=== PATIENT | male | born 1950 | race Caucasian/White ===

== ENCOUNTER 2017-01-01 10:18 | Day surgery (SDC) | payer OTHER ==
[~2017-01-01 10:18] MED LIST: OXYCODONE/APAP 5/325 TAB PO PRN
[2017-01-01] MEDS ORDERED: BUPIVACAINE 0.5% 30 ML SDV ONE (10:59)
[2017-01-01] MEDS ORDERED: ceFAZolin 1 GM/5 ML SYR ONE (11:00)
[2017-01-01] MEDS ORDERED: LIDOCAINE 2% 5 ML SDV ONE (11:01)
[2017-01-01] MEDS ORDERED: LIDOCAINE 1% 5 ML SDV ONE (11:18)
[2017-01-01] MEDS ORDERED: LIDOCAINE 1% 5 ML SDV ID PRN (11:21)
[2017-01-01] MEDS ORDERED: LR 1,000 ML IV ONE (11:21)
[2017-01-01] MEDS ORDERED: CEFAZOLIN 1 GM/DEXTROSE/50 ML BAG IV ONE ×2 (11:24→11:33)
[2017-01-01] MEDS ORDERED: ceFAZolin 2 GM/DEXTROSE 100 ML IV ONE (12:00)
[2017-01-01] MEDS ORDERED: MIDAZOLAM 2 MG/2 ML VIAL ONE (13:16)
[2017-01-01] MEDS ORDERED: LIDOCAINE 2% 100 MG/5 ML SYR IVP ONE (13:24)
[2017-01-01] MEDS ORDERED: PROPOFOL/EMULSION 500 MG/50 ML BOTTLE IV ONE (13:24)
[2017-01-01] MEDS ORDERED: PROPOFOL 200 MG/20 ML VIAL ONE (14:48)
--- NOTE | 2017-01-02 05:09 | GOP ---
[f rep st] OPERATIVE REPORT DATE OF OPERATION: 01/01/2017 SURGEON: Felix Villaseñor DPM PEDIATRICS PHYSICIAN: None. ANESTHESIA: IV general. PREOPERATIVE DIAGNOSIS: Hallux abductovalgus right foot. POSTOPERATIVE DIAGNOSIS: Hallux abductovalgus right foot. PROCEDURE PERFORMED: 1. Fusion 1st tarsometatarsal joint, right foot. 2. Guzman bunionectomy. FINDINGS: ESTIMATED BLOOD LOSS: Scant. INDICATIONS: The patient is an otherwise healthy 66-year-old gentleman who presented to my office w ith continued pain to his right forefoot. The patient had been evaluated some 5 years ago for the s mago bunion deformity, and noted that he has attempted all conservative care offered him over that ti ar frame. This includes padding, antiinflammatories with Advil being used on a daily basis, as well as accommodative shoe gear to address the wide forefoot. He relates continued pain. The patient u nderstands the risks, benefits, and alternatives to the procedure presented and wishes to proceed. DESCRIPTION OF PROCEDURE: Under mild sedation, the patient was brought into the operating room, susan indra on the operating table in a supine position. Following further IV sedation, as well as 2 g of I V Ancef at least 30 minutes prior to incision, roughly 30 cc of 0.5% Marcaine plain was infiltrated about the patient's right forefoot in a regional block. 10 cc of 2% lidocaine plain was infiltrated as well around the medial column of the patient's right forefoot. The foot was then scrubbed, prep ped and draped in the usual aseptic manner. A sterile pneumatic ankle tourniquet was placed about t he patient's well-padded supramalleolar area. An Esmarch bandage was utilized to exsanguinate the p atient's right foot and the tourniquet was inflated to 250 mmHg. An Esmarch bandage was utilized to exsanguinate the patient's right foot and the tourniquet was infl ated to 250 mmHg. Attention was then directed to the area overlying the medial aspect of the patient's medial column w ith a 12 cm linear longitudinal incision made from the proximal portion of the medial aspect of the 1st cuneiform of the right foot distally to the medial aspect of the base of the patient's proximal phalanx of the right hallux. The incision was deepened via sharp and blunt dissection with care arlen ng taken to identify and retract all vital, neural, and vascular structures. All bleeders were liga cait and cauterized as necessary. A periosteal and capsular incision was made in line with the skin incision. The periosteal and capsular structures were reflected dorsally and plantarly thus exposin g the 1st tarsometatarsal joint as well as the medial aspect of the 1st metatarsophalangeal joint. The distal insertion of the tibialis anterior was also partially reflected proximally to expose more of the plantar base of the 1st cuneiform. At this time, a Hintermann type distractor was used to d istract the 1st tarsometatarsal joint. The tarsometatarsal joint was prepared for fusion with curet tage and osteotomes to remove the cartilage as well as break up the subchondral plate. The subchond ral plate on either side of the 1st tarsometatarsal fusion site was fenestrated with a 2.5 mm drill to increase surface area, as well as get bleeding bone at the fusion site. At this time, the K-wire s and the intermittent distractor were removed and passed from the operative field. At this time, a 2 mm K-wire was placed from medial to lateral in the diaphysis of the 1st metatarsal, again from me dial to lateral. This was used as a joystick to rotate the patient's 1st metatarsal out of valgus, thus restoring the position of the sesamoids under the 1st metatarsal head. At the same time as the rotation of the 1st metatarsal, the transverse plane deformity was reduced, [id number] bone red uction forceps around the neck of the 1st and 2nd metatarsal, thus, closing down the 1st intermetata rsal angle. This was checked under intraoperative fluoroscopy and noted to be excellent reduction. Next, a right foot, plantar Lapidus plate from [employer] was temporarily placed on the plantar and me dial aspects of the patient's base of the 1st metatarsal and 1st cuneiform. This again was checked under intraoperative fluoroscopy for position. At this time, the distal locking screws were put in place and then a "home run screw" was placed from the base of the 1st metatarsal across the fusion s ite and into the 1st cuneiform. This measured roughly 32 mm x 3.5 mm and was a fully-threaded kali x screw. There was excellent compression noted across the fusion site. Again, intraoperative fluor oscopy was utilized to check the sagittal and transverse plane correction. The proximal locking scr ews were also placed at this time, measuring 20 and 24 mm respectively. At this time, attention was directed to the 1st metatarsophalangeal joint where a lateral release was completed of the lateral capsule, as well as a complete tenotomy of the tendon of adductor hallucis. The medial and dorsal e minences were also resected and smoothed down by a sagittal saw. The wound was flushed with copious amounts of sterile normal saline. Any temporary fixation was removed at this time. A medial capsu lorrhaphy of the 1st metatarsophalangeal joint was completed to further reduce the deformity of the right hallux and put the right hallux in a more rectus position. Periosteal and capsular structures were reapproximated and coapted utilizing 2-0 Vicryl. Subcutaneous tissues were reapproximated and coapted utilizing 3-0 Monocryl and the skin was reapproximated and coapted utilizing a running base ball-type suture of 4-0 Prolene. The wound was dressed with Xeroform and a sterile compressive dres sing consisting of 4x4s and Davin. A Coban wrap was lightly applied. The tourniquet was dropped an d a prompt hyperemic response was noted to all digits of the right foot. A posterior splint was als o applied to the patient's right lower extremity to hold the patient's ankle at 90 degrees as well a s help control any postoperative edema. The patient tolerated the procedure and anesthesia well. He was transferred to the recovery room wi th vital signs stable and vascular status intact to all digits of the right foot. The patient will be discharged home on the following written and oral postoperative instructions: 1. Keep dressing clean, dry, and intact. 2. Patient will be nonweightbearing at all times with a knee scooter. 3. Ice and elevate as instructed. 4. Use pain medication as instructed and with caution. 5. All questions and concerns should be directed toward [facility]opedic Department at [phone]. PATHOLOGY: None. HEMOSTASIS: A pneumatic ankle tourniquet about the right ankle at 250 mmHg times 77 minutes. MATERIALS: A right foot plantar locking Lapidus plate from [employer], 16 mm x 3.5 mm locking screws x 2, a 32 mm x 3.5 mm cortex screw, a 20 x 3.5 mm locking screw, and a 24 x 3.5 mm locking screw. INJECTABLES: 30 cc of 0.5% Marcaine plain, as well as 10 cc of 2% lidocaine plain. COMPLICATIONS: None. /[id number]/MODL
== END 2017-01-01 16:50 | disposition home or self-care (01) ==
LOC: FSGY 10:18
PROVIDERS: ATTEND Podiatrist Foot & Ankle Surgery
PROC: 0SGK0ZZ (ICD-10-PCS; principal; 2017-01-01 12:30)
PROC: 0QBN0ZZ Excision of Right Metatarsal, Open Approach (ICD-10-PCS; principal; 2017-01-01 12:30)
DX: M20.11 Hallux valgus (acquired), right foot (principal); G47.33 Obstructive sleep apnea (adult) (pediatric); K21.9 Gastro-esophageal reflux disease without esophagitis; Z85.46 Personal history of malignant neoplasm of prostate
CPT/HCPCS: 28297; 28740; C1769; C1713; J0690; J2001; J2250; J2704

== ENCOUNTER → 2017-01-19 | Outpatient (CLI) | payer OTHER | LOC: BMCIMAGING 13:22 | PROVIDERS: ATTEND Podiatrist Foot & Ankle Surgery | DX: Z47.89 Encounter for other orthopedic aftercare (principal) ==

== ENCOUNTER → 2017-02-19 | Outpatient (CLI) | payer OTHER | LOC: BMCIMAGING 15:03 | PROVIDERS: ATTEND Podiatrist Foot & Ankle Surgery | DX: Z47.89 Encounter for other orthopedic aftercare (principal) ==

== ENCOUNTER → 2017-09-22 | Outpatient (CLI) | payer OTHER | LOC: BMCIMAGING 15:57 | PROVIDERS: ATTEND Family Medicine | DX: S22.42XA Multiple fractures of ribs, left side, initial encounter for closed fracture (principal) | CPT/HCPCS: 71101-PO ==